=== PATIENT | male | born 1995 | race African-American/Black ===

== ENCOUNTER 2017-01-05 18:18 | Emergency (ER) | payer SELFPAY ==
[~2017-01-05] VITALS: Ht 188 cm; Wt 76.7 kg
[2017-01-05 18:24] VITALS: BP 130/66; PULSE 84; RESP 18; TEMP 98.5; O2SAT 99
[2017-01-05] MEDS ORDERED: SILV1CRE20 TOPICAL (18:57)
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
== END 2017-01-05 19:10 | disposition home or self-care (01) ==
LOC: PHEFT 18:18
DX: T21.26XA Burn of second degree of male genital region, initial encounter (principal); F12.90 Cannabis use, unspecified, uncomplicated; F17.210 Nicotine dependence, cigarettes, uncomplicated; X08.8XXA Exposure to other specified smoke, fire and flames, initial encounter; Y93.89 Activity, other specified
CPT/HCPCS: 99282